=== PATIENT | male | born 1950 | race Hispanic/Latino ===

== ENCOUNTER 2025-06-19 13:12 | Emergency (ER) | payer SELFPAY ==
[~2025-06-19] VITALS: Ht 160 cm; Wt 77.1 kg
--- NOTE | 2025-06-19 13:18 | ERN ---
ED Note History of Present Illness Stated Complaint: CHEST PAIN Chief Complaint: Chest Pain Time Seen by MD: 13:14 Dictation: PATIENT IS A 75-YEAR-OLD MALE COMING IN TODAY WITH EPIGASTRIC AND SUBSTERNAL CHEST PAIN PRESSURE ONSET 30 MINUTES PRIOR TO ARRIVAL. NO NAUSEA VOMITING NO BACK PAIN NO JAW PAIN NO ARM PAIN. HE HAS NOT TAKEN ANYTHING PRIOR TO ARRIVAL FOR PAIN, NOTED TO BE MILDLY DIAPHORETIC IN TRIAGE. PATIENT HAS EPIGASTRIC TENDERNESS WITH PALPATION Allergies: Coded Allergies: No Known Drug Allergies (Unverified Allergy, Unknown, 06/19/25) Past Medical History RN Note Reviewed/Agreed w/PFSH: Yes Review of System Dictation CONSTITUTIONAL: NEGATIVE EXCEPT FOR HPI HEAD/FACE: NEGATIVE EXCEPT FOR HPI EENT: NEGATIVE EXCEPT FOR HPI RESPIRATORY: NEGATIVE EXCEPT FOR HPI GASTROINTESTINAL/ABDOMINAL: NEGATIVE EXCEPT FOR HPI EPIGASTRIC AND SUBSTERNAL CHEST PAIN PRESSURE BURNING GENITOURINARY: NEGATIVE EXCEPT FOR HPI MUSCULOSKELETAL: NEGATIVE EXCEPT FOR HPI INTEGUMENTARY: NEGATIVE EXCEPT FOR HPI NEUROLOGICAL/PSYCH: NEGATIVE EXCEPT FOR HPI HEMATOLOGIC/LYMPHATIC: NEGATIVE EXCEPT FOR HPI ALL SYSTEMS NEGATIVE, EXCEPT NOTED ABOVE. 13 POINT REVIEW OF SYSTEMS ASSESSED AND ALL NEGATIVE EXCEPT FOR ABOVE. Initial Vital Sign VS Vital Signs Date Time Temp Pulse Resp B/P (MAP) Pulse Ox O2 Delivery O2 Flow Rate FiO2 06/19/25 13:14 98.2 71 20 178/83 96 Room Air 0 06/19/25 18:36 21 Physical Exam Dictation VITAL SIGNS REVIEWED GENERAL APPEARANCE: ALERT, ORIENTED X 3, MODERATE ACUTE DISTRESS, WELL DEVELOPED, NOURISHED. HEAD AND FACE: NON-TRAUMATIC. EYES: PERRL, PINK CONJUNCTIVAS, EYELID NO TRAUMA, ANTERIOR CHAMBER WITH ARCUS SENILIS. EARS: PINNAS INTACT AND NO SIGNS OF TRAUMA OR ERYTHEMA EAR CANALS CLEAR AND NO DISCHARGE TM NO ERYTHEMA NOSE: NO DISCHARGE, NO BLEEDING. OROPHARYNX: MOUTH NORMAL, TONGUE PINK, PHARYNX CLEAR,NO ERYTHEMA, TONSILS NO EXUDATES, NO ABSCESSES NOTED, MUCOUS MEMBRANE MOIST NECK: SUPPLE, NON-TENDER, NO THYROMEGALY, NO MASSES, NO JVD, NO BRUITS BREAST:DEFERRED CHEST:NO TENDERNESS, NO CREPITUS, NO PARADOXICAL MOVEMENT, NO RETRACTIONS LUNGS:CLEAR, WELL-VENTILATED, SYMMETRIC, NO RALES, NO WHEEZING, NO RHONCHI, NO STRIDOR, GOOD BREATH SOUNDS BILATERALLY HEART: REGULAR RATE, REGULAR RHYTHM, NO MURMUR, NO GALLOPS VASCULAR: NO PERIPHERAL EDEMA, ABDOMEN: SOFT, POSITIVE BOWEL SOUNDS, NONDISTENDED, NO GUARDING, EPIGASTRIC TENDERNESS WITH PALPATION NO REBOUND, NO MASSES NO HEPATOMEGALY, NO SPLENOMEGALY, NO MCNEIL'S SIGN, NO HERNIAS. RECTAL: DEFERRED GENITAL: DEFERRED NEUROLOGICAL: NORMAL SPEECH, MOTOR FUNCTION INTACT, SENSORY FUNCTION INTACT MUSCULOSKELETAL: NECK NONTENDER, FULL RANGE OF MOTION, BACK NONTENDER, FULL RANGE OF MOTION, EXTREMITIES: NONTENDER, FULL RANGE OF MOTION SKIN: COLOR PINK, DRY, NO TURGOR, NO RASH, NO LACERATIONS, NO ABRASIONS, NO CONTUSIONS. LYMPHATIC: DEFERRED Results (Laboratory/Radiology) Laboratory/Radiology Laboratory Tests Test 06/19/25 13:22 06/19/25 18:30 White Blood Count 9.7 K/uL (4.8-10.8) Red Blood Count 5.57 MIL/uL (4.50-6.20) Hemoglobin 16.3 g/dL (14.0-18.0) Hematocrit 48.7 % (42-54) Mean Corpuscular Volume 87.4 fL (79-99) Mean Corpuscular Hemoglobin 29.3 pg (27.0-33.0) Mean Corpuscular Hemoglobin Concent 33.5 g/dL (32.0-36.0) Red Cell Distribution Width 13.1 % (11.0-15.5) Platelet Count 287 K/uL (130-400) Mean Platelet Volume 9.6 fL (7.5-10.5) Immature Granulocyte % (Auto) 0.6 % (0-1) Neutrophils (%) (Auto) 70.8 % (40.0-77.0) Lymphocytes (%) (Auto) 18.5 % (21.0-51.0) L Monocytes (%) (Auto) 7.6 % (3.0-13.0) Eosinophils (%) (Auto) 2.0 % (0.0-8.0) Basophils (%) (Auto) 0.5 % (0.0-5.0) Neutrophils # (Auto) 6.9 K/uL (1.8-7.7) Lymphocytes # (Auto) 1.8 K/uL (1.0-4.8) Monocytes # (Auto) 0.7 K/uL (0.1-1.0) Eosinophils # (Auto) 0.19 K/uL (0.00-0.70) Basophils # (Auto) 0.05 K/uL (0.00-0.20) Absolute Immature Granulocyte (auto 0.06 K/uL (0-1) Nucleated Red Blood Cells 0.0 % (0.0-0.19) Sodium Level 137 mmol/L (136-145) Potassium Level 3.6 mmol/L (3.5-5.1) Chloride Level 102 mmol/L (101-111) Carbon Dioxide Level 26 mmol/L (21-32) Blood Urea Nitrogen 10 mg/dL (7-18) Creatinine 0.8 mg/dL (0.5-1.3) Glomerular Filtration Rate Calc 92 mL/min (>90) Random Glucose 123 mg/dL (70-105) H Total Calcium 9.0 mg/dL (8.5-10.1) Troponin I High Sensitivity 59 ng/L (4-75) Lipase 67 U/L (16-77) Urine Color COLORLESS (YELLOW) Urine Appearance CLEAR (CLEAR) Urine pH 5.5 (5.0-8.0) Urine Specific [place] 1.004 (1.001-1.031) Urine Protein NEGATIVE mg/dL (NEGATIVE) Urine Glucose (UA) NEGATIVE mg/dL (NEGATIVE) Urine Ketones NEGATIVE mg/dL (NEGATIVE) Urine Occult Blood NEGATIVE (NEGATIVE) Urine Nitrate NEGATIVE (NEGATIVE) Urine Bilirubin NEGATIVE mg/dL (NEGATIVE) Urine Urobilinogen 0.2 mg/dL (0.2-1.0) Urine Leukocyte Esterase NEGATIVE Fernando/uL Labs Reviewed?: Yes EKG: (+) NSR EKG Comment: EKG NORMAL SINUS RHYTHM/HEART RATE 78/AXIS NORMAL/NO ECTOPY ED Course ED Course Orders Procedure Category Date Status Time Cbc With Differential LAB 06/19/25 Complete 13:15 Troponin I High LAB 06/19/25 Complete Sensitivity 13:15 Urinalysis Profile LAB 06/19/25 Complete 13:15 12 Lead Ekg Tracing- EKG 06/19/25 Logged Technical 13:15 Morphine 2mg Syg PHA 06/19/25 Complete (Morphine 2mg Syg) 13:30 Ondansetron 4mg Inj PHA 06/19/25 Complete (Zofran 4mg Inj) 13:30 Lidocaine Hcl 2% PHA 06/19/25 Complete Viscous (Lidocaine Hcl 13:30 Mag/Alum/Simeth 30ml PHA 06/19/25 Complete (Maalox Plus 30ml) 13:30 Dicyclomine Hcl PHA 06/19/25 Complete (Bentyl 10mg/5ml 13:30 Famotidine 20mg Vial PHA 06/19/25 Complete (Pepcid 20mg Vial) 13:30 Lipase LAB 06/19/25 Complete 13:15 Basic Metabolic Panel LAB 06/19/25 Complete 13:15 Dicyclomine Hcl PHA 06/19/25 Complete (Bentyl 10mg/5ml 19:00 Famotidine 20mg Vial PHA 06/19/25 Complete (Pepcid 20mg Vial) 19:00 Lidocaine Hcl 2% PHA 06/19/25 Complete Viscous (Lidocaine Hcl 19:00 Mag/Alum/Simeth 30ml PHA 06/19/25 Complete (Maalox Plus 30ml) 19:00 Morphine 2mg Syg PHA 06/19/25 Complete (Morphine 2mg Syg) 19:00 Ondansetron 4mg Inj PHA 06/19/25 Complete (Zofran 4mg Inj) 19:00 Current Medications Medications (Trade) Dose Ordered Sig/Diane Route PRN Reason Start Time Stop Time Status Last Admin Dose Admin Al Hydroxide/Mg Hydroxide (MAALox PLUS 30ML) 30 ml ONCE ONCE PO 06/19/25 13:30 06/19/25 13:31 DC Al Hydroxide/Mg Hydroxide (MAALox PLUS 30ML) 30 ml ONCE ONCE PO 06/19/25 19:00 06/19/25 19:01 DC 06/19/25 18:52 Dicyclomine HCl (Bentyl 10mg/5ml Syrup) 10 mg ONCE ONCE PO 06/19/25 13:30 06/19/25 13:31 DC 06/19/25 18:52 Dicyclomine HCl (Bentyl 10mg/5ml Syrup) 10 mg ONCE ONCE PO 06/19/25 19:00 06/19/25 19:01 DC Famotidine (Pepcid 20mg Vial) 20 mg ONCE ONCE IV 06/19/25 13:30 06/19/25 13:31 DC Famotidine (Pepcid 20mg Vial) 20 mg ONCE ONCE IV 06/19/25 19:00 06/19/25 19:01 DC 06/19/25 18:52 Lidocaine HCl (Lidocaine HCl 2% Viscous) 10 ml ONCE ONCE PO 06/19/25 13:30 06/19/25 13:31 DC Lidocaine HCl (Lidocaine HCl 2% Viscous) 10 ml ONCE ONCE PO 06/19/25 19:00 06/19/25 19:01 DC Morphine Sulfate (morPHINE 2MG SYG) 2 mg ONCE ONCE IVP 06/19/25 13:30 06/19/25 13:31 DC Morphine Sulfate (morPHINE 2MG SYG) 2 mg ONCE ONCE IVP 06/19/25 19:00 06/19/25 19:01 DC Ondansetron HCl (zoFRAN 4MG INJ) 4 mg ONCE ONCE IVP 06/19/25 13:30 06/19/25 13:31 DC Ondansetron HCl (zoFRAN 4MG INJ) 4 mg ONCE ONCE IVP 06/19/25 19:00 06/19/25 19:01 DC 06/19/25 18:52 Vital Signs Date Time Temp Pulse Resp B/P (MAP) Pulse Ox O2 Delivery O2 Flow Rate FiO2 06/19/25 18:36 98.1 70 16 175/80 98 Room Air* 0 21 06/19/25 13:14 98.2 71 20 178/83 96 Room Air 0 1950/patient has been in the waiting room for several hours. He finally received his Pepcid and the GI cocktail. He states no pain at this time. Cardiac portion of the workup was completely unremarkable HEART Score Response (Comments) Value History: Low suspicion (0) 0 Age: > 65yrs (+2) 2 Risk Factors: 1-2 risk factors (+1) 1 Initial Troponin: Normal limit (0) 0 Total 3 Medical Decision Making MDM MDM: Differential diagnosis: Gastritis/pancreatitis/esophageal reflux disease/ACS/AZ/electrolyte imbalance/dehydration Rationale: Tests considered and ordered secondary to shared decision making include: EKG/labs Previous outside records reviewed: Old ER visits. Risk of complication and/or morbidity or mortality of patient management: None Medications-Per medication reconciliation Need for hospitalization: Patient does not meet criteria for hospitalization. No Need for emergency major/minor surgery: No There are no social concerns with this patient. Prescription drug management Carafate/omeprazole Prescriptions will include symptomatic care Patient's prior external medical records from other ER visits were reviewed by me as indicated. Prior testing and results from previous visits were reviewed. Prior tests were taken into account with medical decision making and resource utilization, independent historian/historians were used to obtain complete medical history. I independently interpreted the test that were performed, results were reviewed by me and considered findings on radiology if ordered. Medical management and examination interpretation discussions were had by me with other qualified healthcare professionals as indicated for the patient's care. DX & DISP Disposition: Discharge Departure Impression: Primary Impression: Acute gastritis Additional Impression: Uncontrolled diabetes mellitus Condition: Stable Scripts Omeprazole (Omeprazole) 40 Mg Capsule.dr 1 CAP PO DAILY for 30 Days, #30 CAP 0 Refills Prov: SALLIE ESPOSITO COMMERCIAL DEVELOPMENT MANAGER 06/19/25 Sucralfate (Carafate) 1 Gram Tablet 1 GM PO ACHS for 10 Days, #40 TAB Prov: SALLIE ESPOSITO COMMERCIAL DEVELOPMENT MANAGER 06/19/25 Additional Instructions: Follow-up with primary care provider in 1 to 2 days. Take medications as directed here in the emergency room. Okay to continue home medications unless otherwise discussed during your visit in the emergency room today. Return to your nearest emergency room if symptoms worsen or if there is no improvement. Call 911 if you need immediate assistance. Take Tylenol or Motrin o [id number] as needed and if no contraindications are present. Increase oral hydration. A wound culture or urine culture was ordered here in the emergency room department please follow-up with primary care provider and advise them to get repeat ports from our facility. If you had any Alexander wrap/splints that were applied here, please do not remove them until you see your primary care or specialty. Follow a bland diet with water for fluids only. Take omeprazole and Carafate as directed. No alcohol, no tobacco, no spicy foods, no ice tea, no coffee, no citrus fruit juice until cleared by your doctor on Sunday. Time of Disposition: 19:54 I have reviewed the case, and I agree with, Diagnosis and Plan SALLIE ESPOSITO NP Jun 19, 2025 13:18
[2025-06-19] MEDS: MAG/ALUM/SIMETH 30 ML UDCUP PO ONE ×2 (13:30→18:52)
[2025-06-19] MEDS: LIDOCAINE HCL 2% VISCOUS 15 ML UDCUP PO ONE ×2 (13:30→20:01)
[2025-06-19] MEDS: FAMOTIDINE 20MG VIAL IV ONE ×2 (13:30→18:52)
[2025-06-19 13:33] LABS: IMMATURE GRANULOCYTE ABSOLUTE 0.06 K/uL (0-1); NUCLEATED RED BLOOD CELLS 0.0 % (0.0-0.19); PLATELET COUNT (AUTO) 287 K/uL (130-400); RED BLOOD CELL COUNT(AUTO) 5.57 MIL/uL (4.50-6.20); RED CELL DISTRIBUTION WIDTH 13.1 % (11.0-15.5); WHITE BLOOD COUNT (AUTO) 9.7 K/uL (4.8-10.8)
[2025-06-19 13:48] LABS: CREATININE 0.8 mg/dL (0.5-1.3); GLOMERULAR FILTR. RATE CALC 92.0 mL/min (>90); GLUCOSE,RANDOM 123.0 mg/dL (70-105); SODIUM SERUM 137.0 mmol/L (136-145); UREA NITROGEN, BLOOD 10.0 mg/dL (7-18)
--- NOTE | 2025-06-19 17:45 | NUR ---
PATIENT CALLED TO THE BACK TO BE BEDDED, NO ANSWER AT THIS TIME. FIRST ATTEMPT./GERMAINE
--- NOTE | 2025-06-19 17:47 | NUR ---
PT CALLED BACK TO FAST TRACK AT THIS TIME, PT PRESENT FOR TREATMENT./GERMAINE
--- NOTE | 2025-06-19 18:24 | NUR ---
REC PT AT THIS TIME
[2025-06-19 18:52] LABS: APPEARANCE,URINE CLEAR (CLEAR); GLUCOSE, URINE (UA) NEGATIVE (NEGATIVE); LEUKOCYTE ESTERASE ,URINE NEGATIVE Leu/uL (NEGATIVE); NITRATE,URINE NEGATIVE (NEGATIVE); OCCULT BLOOD,URINE NEGATIVE (NEGATIVE)
[2025-06-19] MEDS: DICYCLOMINE HCL 10 MG/5 ML ML PO ONE ×2 (18:52→20:01)
[2025-06-19 18:55] LABS: ADD UA MICROSCOPIC NO
[2025-06-19] MEDS ORDERED: SUCR1TAB28 PO (19:55)
[2025-06-19] MEDS ORDERED: OMEP40CA21 PO (19:55)
[2025-06-19 20:03] VITALS: BP 175/80; PULSE 72; RESP 16; TEMP 98.1; O2SAT 98
--- NOTE | 2025-06-20 17:59 | EKG ---
[facility] Test Date: 2025-06-19 Test Time: 13:08:37 Pat Name: RADHIKA STEWART Department: ED Room: Gender: Magnetic Tester: 0699 : 1950 Requested By: SALLIE ESPOSITO Order Number: [id number] Reading MD: Wyatt Cameron Measurements Intervals [place] Rate: 75 P: 56 [place]: 178 QRS: -13 QRSD: 99 T: 54 QT: 403 QTc: 451 Interpretive Statements Sinus rhythm No previous ECG available for comparison Electronically Signed On 06-21-2025 10:55:11 CDT by Wyatt Cameron Please click the below link to view image of tracing.
== END 2025-06-19 20:08 | disposition home or self-care (01) ==
LOC: EDH 13:12
DX: K29.00 Acute gastritis without bleeding (principal); E11.65 Type 2 diabetes mellitus with hyperglycemia
CPT/HCPCS: 99284; 96365; 96375; 84484; 80048; 83690; 85025; 81003; 36415; 93005; J3490; J2270; J2405